=== PATIENT | female | born 1980 | race Two or more races ===

== ENCOUNTER 2022-01-22 11:51 | Inpatient (IN) ==
[2022-01-22 12:06] VITALS: BMI 39.6
[2022-01-22] MEDS ORDERED: NS 1,000 ML IV 1,000 ML IV ONE (12:48)
--- NOTE | 2022-01-22 12:49 | DR.GENAD ---
HPI Time Seen Time Seen by Provider: 01/22/22 12:48 PCP Primary Care Physician: OMAR Complaint/Symptoms Chief Complaint Doctors Comments: 41 y/o female presents with heavy vaginal bleeding over the past few weeks. Denies pain. Has been dizzy recently. No fever, chills, diarrhea or problems with urination/bowel movements. Has had some nausea, no vomiting. No prior h/o heavy bleeding. Chief Complaint:: PT. STATES SHE HAS HAD HEAVY VAGINAL BLEEDING SINCE AND NOW FEELS WEAK AND DIZZY. COVID-19 Coronavirus risk:travel/contact w/high risk person: No Has patient experienced Coronavirus symptoms: No Nurses notes reviewed Nurses Notes Review: Yes Source History Provided: Patient and Other Mode of Arrival Mode of Arrival: Ambulatory Timing Onset of Chief Complaint: 12/27/21 PMH PMH Past Medical History: No Past Surgical History: No Surgical History: No History Family History History of Family Medical Conditions: No Social History Does patient currently use any type of tobacco product: No Have you used tobacco products in the last 12 months: No Type of Tobacco Use: None Does any household member use tobacco: No Alcohol Use: None Do you use any recreational Drugs:: No Lives With: Family Lives Where: Home Travel Risk Coronavirus risk:travel/contact w/high risk person: No Has patient experienced Coronavirus symptoms: No Infectious screening In the last 2 months have you had wt loss of >10#?: NO Have you had fever, night sweats or hemotysis?: No Have you traveled outside the country in the last 6 months?: No Isolation: Standard ROS Review of Systems Constitutional: Weakness Eyes: No Symptoms Reported ENTM: No Symptoms Reported Respiratoy: No Symptoms Reported Cardiovascular: No Symptoms Reported Gastrointestinal/Abdominal: No Symptoms Reported Genitourinary: Bleeding Neurological: Dizziness Musculoskeletal: No Symptoms Reported Integumentary: No Symptoms Reported Hematologic/Lymphatic: No Symptoms Reported All Other Systems: Reviewed and Negative PE Vital Signs Vitals: Temperature 97.9 F Pulse Rate 90 Respiratory Rate 17 Blood Pressure 119/58 O2 Sat by Pulse Oximetry 100 General General Appearance: Alert and In No Apparent Distress Eyes Eye exam: PERRL, EOMI and Other (+ pale palpebral conjunctivae) Neck Neck Exam: Normal Inspection Respiratory Respiratory Exam: Normal Lung Sounds Bilat; negative Accessory Muscle Use or Respiratory Distress Cardiovascular Cardiovascular Exam: Regular Rate, Normal Rhythm and Normal Heart Sounds Abdominal Exam Abdominal Exam: Normal Inspection, Normal Bowel Sounds and Soft; negative Tenderness Extremities Extremities Exam: Normal Inspection Back Back Exam: Normal Inspection; negative (R) CVA Tenderness or (L) CVA Tenderness Neurologic Neurological Exam: Alert, Oriented X3 and CN II-XII Intact; negative Motor Sensory Deficit Skin Skin Exam: Warm and Dry COURSE Treatment Treatment: 41 y/o female with vaginal bleeding x few weeks. W/u initiated. Given IV fluids. 1421 - + severe anemia, Hgb 4.1. test negative. Transvaginal US without obvious acute abnormalities, no fibroids. Pt deserves admisison for blood transfusion, 2 U ordered for transfusion. Will start provera, 10 mg po, to try to ameliorate the bleeding. Discussefd with Dr Martinez, covering for admissions, accepts the admission. Pt informed of results via hospital acoustic intelligence specialist. [facility] Labs Reviewed Laboratory Results Reviewed?: Yes Result Diagrams: 01/22/22 13:18 01/22/22 13:18 Laboratory: WBC 6.5 X10^3/uL (3.6-10.0) 01/22/22 13:18 RBC 2.06 X10^6/uL (3.5-5.4) L 01/22/22 13:18 Hgb 4.1 g/dL (12.0-16.0) L* 01/22/22 13:18 Hct 13.2 % (36.0-47.0) L* 01/22/22 13:18 MCV 64.3 fL (80.0-100.0) L 01/22/22 13:18 MCH 20.0 pg (27.0-34.0) L 01/22/22 13:18 MCHC 31.1 g/dL (33.0-35.0) L 01/22/22 13:18 RDW 17.0 % (11.6-16.5) H 01/22/22 13:18 Plt Count 352 X10^3/uL (150.0-450.0) 01/22/22 13:18 Plt Count Comment Adequate (ADEQUATE) 01/22/22 13:18 MPV 7.6 fL (7.4-11.0) 01/22/22 13:18 Neut % (Auto) 60.8 % (42.0-75.0) 01/22/22 13:18 Lymph % (Auto) 28.9 % (21.0-51.0) 01/22/22 13:18 [place] % (Auto) 7.6 % (0.0-13.0) 01/22/22 13:18 Eos % (Auto) 1.8 % (0.9-2.9) 01/22/22 13:18 Baso % (Auto) 0.9 % (0.2-1.0) 01/22/22 13:18 Neut # (Auto) 4.0 x10^3/uL (2.2-4.8) 01/22/22 13:18 Lymph # (Auto) 1.9 X10^3/uL (1.3-2.9) 01/22/22 13:18 [place] # (Auto) 0.5 x10^3/uL (0.3-0.8) 01/22/22 13:18 Eos # (Auto) 0.1 x10^3/uL (0.0-0.2) 01/22/22 13:18 Baso # (Auto) 0.1 X10^3/uL (0.0-0.1) 01/22/22 13:18 Absolute Nucleated RBC 0.4 /100WBC 01/22/22 13:18 Plt Morphology Comment Normal (NORMAL) 01/22/22 13:18 RBC Morphology Abnormal (NORMAL) A 01/22/22 13:18 Hypochromasia 3+ A 01/22/22 13:18 Poikilocytosis 1+ A 01/22/22 13:18 Anisocytosis Slight A 01/22/22 13:18 Microcytosis 2+ A 01/22/22 13:18 Target Cells Slight A 01/22/22 13:18 Ovalocytes Slight A 01/22/22 13:18 Sodium 140 mmol/L (136-145) 01/22/22 13:18 Corrected Sodium TNP 01/22/22 13:18 Potassium 3.9 mmol/L (3.5-5.1) 01/22/22 13:18 Chloride 105 mmol/L (98-107) 01/22/22 13:18 Carbon Dioxide 25.0 mmol/L (21-32) 01/22/22 13:18 BUN 11 mg/dL (7-18) 01/22/22 13:18 Creatinine 0.62 mg/dL (0.55-1.02) 01/22/22 13:18 Est GFR (MDRD) Af Amer > 60 (>60) 01/22/22 13:18 Est GFR (MDRD) Non-Af > 60 (>60) 01/22/22 13:18 Glucose 89 mg/dL (65-99) 01/22/22 13:18 Calcium 8.3 mg/dL (8.5-10.1) L 01/22/22 13:18 Corrected Calcium TNP 01/22/22 13:18 Total Bilirubin 0.30 mg/dL (0.2-1.0) 01/22/22 13:18 AST 25 Units/L (15-37) 01/22/22 13:18 ALT 34 Units/L (12-78) 01/22/22 13:18 Alkaline Phosphatase 72 Units/L (46-116) 01/22/22 13:18 Total Protein 7.3 g/dL (6.4-8.2) 01/22/22 13:18 Albumin 3.5 g/dL (3.4-5.0) 01/22/22 13:18 Globulin 3.8 g/dL (2.5-4.5) 01/22/22 13:18 Albumin/Globulin Ratio 0.9 Ratio (1.1-2.1) L 01/22/22 13:18 HCG, Qual Negative <10 mIU/mL 01/22/22 12:57 Specimen Type Clean catch urine 01/22/22 12:39 Urine Color [place] (YELLOW) 01/22/22 12:39 Urine Appearance Slightly hazy (CLEAR) 01/22/22 12:39 Urine pH 7.0 (5.0 - 8.0) 01/22/22 12:39 Ur Specific [place] 1.010 (1.000-1.030) 01/22/22 12:39 Urine Protein 1+ (NEGATIVE) 01/22/22 12:39 Urine Glucose (UA) Negative (NEGATIVE) 01/22/22 12:39 Urine Ketones Negative (NEGATIVE) 01/22/22 12:39 Urine Blood 5+ (NEGATIVE) 01/22/22 12:39 Urine Nitrite Negative (NEGATIVE) 01/22/22 12:39 Urine Bilirubin Negative (NEGATIVE) 01/22/22 12:39 Urine Urobilinogen Normal (NORMAL) 01/22/22 12:39 Ur Leukocyte Esterase 1+ (NEGATIVE) 01/22/22 12:39 Urine RBC Tntc /HPF (0-3) A 01/22/22 12:39 Urine WBC 3-5 /HPF (0-5) 01/22/22 12:39 Ur Squamous Epith Cells Few /HPF (NEGATIVE) 01/22/22 12:39 Urine Bacteria Trace /HPF (NEGATIVE) 01/22/22 12:39 Ur Culture Indicated? No/not indicated 01/22/22 12:39 Blood Type A POSITIVE 01/22/22 13:18 Antibody Screen Negative 01/22/22 13:18 Crossmatch See Detail 01/22/22 13:18 Hgb low Opioid Opioid Risk Tool Age (Gabriel box if 16-45): Yes History of Preadolescent Sexual Abuse: No Total: 1 Total Score Risk Category: Low Risk Copyright: Ananda LEDBETTER predicting aberrant behaviors Discharge Plan Diagnosis Discharge Problem: Severe anemia, Abnormal vaginal bleeding Discharge Plan Patient Disposition: ADMITTED INPATIENT Condition: Stable Orders to Discharge Patient Discharge Orders: Transfer (Routine); Ordered 01/22/22 Ordered By: Orlando Mares
[2022-01-22] MEDS ORDERED: NS 1,000 ML IV 1,000 ML ONE (12:50)
[2022-01-22 13:07] LABS: BASOPHILS # (AUTO) 0.1 X10^3/uL (0.0-0.1); EOSINOPHILS # (AUTO) 0.1 x10^3/uL (0.0-0.2); MONOCYTES # (AUTO) 0.5 x10^3/uL (0.3-0.8)
[2022-01-22 13:12] LABS: LYMPHOCYTES # (AUTO) 1.9 X10^3/uL (1.3-2.9); MEAN CORPUSCULAR HGB CONC 31.1 g/dL (33.0-35.0); MEAN PLATELET VOLUME 7.6 fL (7.4-11.0)
[2022-01-22 13:15] LABS: BILIRUBIN,URINE NEGATIVE (NEGATIVE); BLOOD/HEMOGLOBIN,URINE 5+ (NEGATIVE); GLUCOSE, URINE NEGATIVE (NEGATIVE); KETONES,URINE NEGATIVE (NEGATIVE); LEUKOCYTE ESTERASE ,URINE 1+ (NEGATIVE); NITRITES,URINE NEGATIVE (NEGATIVE); PROTEIN,URINE 1+ (NEGATIVE); UROBILINOGEN,URINE NORMAL (NORMAL)
[2022-01-22 13:17] LABS: BLOOD UREA NITROGEN 11 mg/dL (7-18); CALCIUM 8.3 mg/dL (8.5-10.1); CHLORIDE 105 mmol/L (98-107); CREATININE 0.62 mg/dL (0.55-1.02); SODIUM 140 mmol/L (136-145); eGFR NON BLACK RACES > 60 (>60)
[2022-01-22 13:20] LABS: SERUM PREGNANCY TEST, QUAL NEGATIVE <10 mIU/mL
[2022-01-22 13:34] LABS: BASOPHILS % (AUTO) 0.9 % (0.2-1.0); EOSINOPHILS % (AUTO) 1.8 % (0.9-2.9); LYMPHOCYTES % (AUTO) 28.9 % (21.0-51.0); MEAN CORPUSCULAR VOLUME 64.3 fL (80.0-100.0); MONOCYTES % (AUTO) 7.6 % (0.0-13.0); NEUTROPHILS % (AUTO) 60.8 % (42.0-75.0); RED BLOOD COUNT 2.06 X10^6/uL (3.5-5.4); WHITE BLOOD COUNT 6.5 X10^3/uL (3.6-10.0)
[2022-01-22 13:37] LABS: HEMATOCRIT 13.2 % (36.0-47.0); HEMOGLOBIN 4.1 g/dL (12.0-16.0)
[2022-01-22 13:38] LABS: APPEARANCE,URINE SLIGHTLY HAZY (CLEAR); BACTERIA,URINE TRACE /HPF (NEGATIVE); COLOR,URINE PINK (YELLOW); RBC,URINE TNTC /HPF (0-3); SQUAMOUS EPITHELIAL CELL,UR FEW /HPF (NEGATIVE)
[2022-01-22 13:38] LABS: HYPOCHROMASIA 3+; MICROCYTOSIS 2+; OVALOCYTES SLIGHT; PLATELET MORPHOLOGY COMMENT NORMAL (NORMAL); TARGET CELLS SLIGHT
[2022-01-22 13:39] LABS: ANISOCYTOSIS SLIGHT; POIKILOCYTOSIS 1+
[2022-01-22 13:58] LABS: ALANINE AMINOTRANSFERASE 34 Units/L (12-78); ALBUMIN 3.5 g/dL (3.4-5.0); ALKALINE PHOSPHATASE 72 Units/L (46-116); ASPARTATE AMINO TRANSFERASE 25 Units/L (15-37); TOTAL PROTEIN 7.3 g/dL (6.4-8.2)
--- NOTE | 2022-01-22 14:44 | US ---
HISTORYHEAVY VAGINAL BLEEDING, HEMOGLOBIN=4, LMP DecemberTUDYTRANSVAGINALCOMPARISONNone TECHNIQUEPelvic ultrasound transvaginal approach.FINDINGSThe uterus measures 7.7 x 4.8 x 6.2 cm. Endometrium measures 1.7 cm. Right ovary not visualized. Left ovary measures 4.8 x 2.7 x 2.5 cm. There is a 4.1 x 2.5 x 2.5 cm simple appearing cyst in the left ovary. Nabothian cyst noted in the cervix. Uterus is retroflexed.IMPRESSIONEndometrium measures 1.7 cm which is nonspecific but can be normal in the secretory phase of the menstrual cycle.Simple appearing left ovarian cyst.Electronically signed by: Andrzej Watt (Jan 22, 2022 14:42:38)
[2022-01-22] MEDS ORDERED: NS 250 ML IV 250 ML IV ONE (15:56)
[2022-01-23 01:26] LABS: HEMATOCRIT 19.1 % (36.0-47.0); HEMOGLOBIN 6.5 g/dL (12.0-16.0)
[2022-01-23] MEDS: PROVERA PO SCH (08:22)
[2022-01-23 10:04] LABS: ALANINE AMINOTRANSFERASE 33 Units/L (12-78); ALKALINE PHOSPHATASE 71 Units/L (46-116); ASPARTATE AMINO TRANSFERASE 23 Units/L (15-37); BASOPHILS # (AUTO) 0.1 X10^3/uL (0.0-0.1); BASOPHILS % (AUTO) 1.8 % (0.2-1.0); BLOOD UREA NITROGEN 9 mg/dL (7-18); CALCIUM 8.5 mg/dL (8.5-10.1); CARBON DIOXIDE 25.7 mmol/L (21-32); CHLORIDE 109 mmol/L (98-107); COR CA(FOR HYPOALB) 9.3 mg/dL (8.5-10.1); COR NA(FOR HYPERGLY) 144 mmol/L (136-145); EOSINOPHILS # (AUTO) 0.1 x10^3/uL (0.0-0.2); LYMPHOCYTES # (AUTO) 1.6 X10^3/uL (1.3-2.9); MEAN CORPUSCULAR HEMOGLOBIN 25.5 pg (27.0-34.0); MEAN CORPUSCULAR HGB CONC 34.7 g/dL (33.0-35.0); MEAN CORPUSCULAR VOLUME 73.5 fL (80.0-100.0); MONOCYTES # (AUTO) 0.5 x10^3/uL (0.3-0.8); MONOCYTES % (AUTO) 7.7 % (0.0-13.0); NEUTROPHILS # (AUTO) 3.8 x10^3/uL (2.2-4.8); NEUTROPHILS % (AUTO) 62.5 % (42.0-75.0); RED BLOOD COUNT 3.67 X10^6/uL (3.5-5.4); RED CELL DISTRIBUTION WIDTH 22.1 % (11.6-16.5); SODIUM 144 mmol/L (136-145); TOTAL PROTEIN 6.4 g/dL (6.4-8.2); WHITE BLOOD COUNT 6.1 X10^3/uL (3.6-10.0); eGFR NON BLACK RACES > 60 (>60)
[2022-01-23 10:47] LABS: HEMOGLOBIN 9.4 g/dL (12.0-16.0)
[2022-01-23 10:48] LABS: ANISOCYTOSIS 2+; MICROCYTOSIS SLIGHT; PLATELET MORPHOLOGY COMMENT NORMAL (NORMAL)
[2022-01-23] MEDS ORDERED: MICRO K EXTEN CAP 10 MEQ PO PRN (11:00)
[2022-01-23] MEDS ORDERED: POTASSIUM CHL 60 MEQ/NS 0.45% 500 ML IV PRN (11:00)
[2022-01-23] MEDS ORDERED: POTASSIUM CHL 40 MEQ/NS 0.45% 500 ML IV PRN (11:00)
[2022-01-23] MEDS ORDERED: KLOR-CON PO PRN (11:00)
[2022-01-23] MEDS ORDERED: POTASSIUM CHLORIDE LIQ 20 MEQ UDC PO PRN (11:00)
[2022-01-23] MEDS ORDERED: K-DUR TAB 20 MEQ PO PRN (11:00)
[2022-01-23] MEDS ORDERED: K-RIDER 10 MEQ/NS 100 ML 10 MEQ/100 ML BAG IV PRN (11:00)
[2022-01-23] MEDS ORDERED: INFeD or DEXFERRUM 25 MG in NS 100 ML IV 100 ML IV NR (12:00)
[2022-01-23] MEDS ORDERED: INFED OR DEXFERRUM IV NR (13:30)
[2022-01-23] MEDS ORDERED: NS IV NR (13:30)
[2022-01-24 06:11] LABS: BASOPHILS # (AUTO) 0.1 X10^3/uL (0.0-0.1); EOSINOPHILS # (AUTO) 0.2 x10^3/uL (0.0-0.2); EOSINOPHILS % (AUTO) 3.5 % (0.9-2.9); HEMATOCRIT 26.3 % (36.0-47.0); LYMPHOCYTES # (AUTO) 1.9 X10^3/uL (1.3-2.9); LYMPHOCYTES % (AUTO) 27.4 % (21.0-51.0); MEAN CORPUSCULAR HEMOGLOBIN 25.1 pg (27.0-34.0); MEAN CORPUSCULAR HGB CONC 34.2 g/dL (33.0-35.0); MEAN CORPUSCULAR VOLUME 73.4 fL (80.0-100.0); MEAN PLATELET VOLUME 8.2 fL (7.4-11.0); MONOCYTES # (AUTO) 0.6 x10^3/uL (0.3-0.8); MONOCYTES % (AUTO) 8.6 % (0.0-13.0); NEUTROPHILS # (AUTO) 4.1 x10^3/uL (2.2-4.8); NEUTROPHILS % (AUTO) 59.5 % (42.0-75.0); RED BLOOD COUNT 3.59 X10^6/uL (3.5-5.4); RED CELL DISTRIBUTION WIDTH 22.7 % (11.6-16.5); WHITE BLOOD COUNT 6.8 X10^3/uL (3.6-10.0)
[2022-01-24 06:41] LABS: HYPOCHROMASIA SLIGHT; PLATELET MORPHOLOGY COMMENT NORMAL (NORMAL)
[2022-01-24 06:42] LABS: ANISOCYTOSIS 2+; MICROCYTOSIS SLIGHT
[2022-01-24 08:06] VITALS: BP 133/66
[2022-01-24] MEDS: PROVERA PO SCH (08:56)
== END 2022-01-24 10:40 | disposition home or self-care (01) | DRG 760 ==
LOC: ER 11:51 → MED/SURG 14:54
PROVIDERS: ADMIT Obstetrics & Gynecology Obstetrics; ATTEND Obstetrics & Gynecology Obstetrics
DX: N83.292 Other ovarian cyst, left side; N93.8 Other specified abnormal uterine and vaginal bleeding; R42 Dizziness and giddiness; D62 Acute posthemorrhagic anemia